=== PATIENT | female | born 1970 | race Caucasian/White ===

== ENCOUNTER 2025-04-02 10:22 | Emergency (ER) | payer OTHER, SELFPAY ==
[2025-04-02 10:24] VITALS: BP 156/86
--- NOTE | 2025-04-02 11:51 | ED.GENMED ---
History of Present Illness
General
Chief Complaint: Back Pain
Source: patient
Exam Limitations: none
Time Seen by Provider: 04/02/25 11:42
History of Present Illness
History of Present Illness:
54-year-old female presents with right flank pain that comes around to the front. Is made worse with motion and deep breathing. She denies shortness of breath. No recent travel or surgery. This was preceded by flulike symptoms including a
temperature as high as 102. She was seen in urgent care tested for COVID and flu which were negative but was found to have a UTI. She was given Rocephin and just finished an oral antibiotic 3 days ago however the pain in her back persist. She
denies any urinary symptoms. She has been vomiting. She has a history of kidney stones but this feels different. She denies a rash or numbness. No other complaints
Past History
Past History
ED Past Medical History: GERD, HTN and Other (Gastroparesis)
Social History
Tobacco: Non-smoker
Alcohol: None
Phy Exam
Physical Exam
Physical Exam:
General: Uncomfortable appearing female no acute respiratory distress
HEENT normal cephalic atraumatic
Heart: Regular rate and rhythm
Lungs: Clear no wheeze
Abdomen is soft but tender to the right costovertebral angle and right mid abdomen negative Goldberg sign no guarding nondistended skin is warm no rash
Musculoskeletal exam: Midline the spine is nontender
Course
Orders/Labs/Results
Orders:
Orders
04/02/25 11:50
CT Abd/pel Without Iv Or Oral Urgent
Comment:
Reason For Exam: right flank pain
0.9% Sodium Chloride 1000 ml [Nss] 1,000 ml IV BOLUS
Ketorolac [Toradol] 15 mg IV NOW STA
Ondansetron Injectable [Zofran] 4 mg IV NOW STA
04/02/25 11:55
Complete Blood Count/With Diff Urgent
Comprehensive Metabolic Panel Urgent
Lipase Urgent
04/02/25 12:51
Urinalysis Reflex To Culture Urgent
Date Specimen was Collected: 04/02/25
Time Specimen was Collected: 12:37
Urine Microscopic Reflex Cult Urgent
Urine Culture Urgent
JESUS Source: U
Specimen Description:
Date Specimen was Collected: 04/02/25
Time Specimen was Collected: 12:37
Abnormal Lab Results
04/02/25 04/02/25
11:55 12:51
ALT 41 H U/L
(0-35)
Ur Occult Blood Reflex 1+ A
(Negative)
Leukocyte Esterase Rfl 3+ A
(Negative)
Urine RBC 16-20 A /HPF
(0-2)
Urine WBC (Reflex) 50-60 A /HPF
(0-5)
Urine Bacteria (Reflex) Few A
(Negative)
Urine Albumin (Reflex) 1+ A
(Neg - Trace)
04/02/25 11:55
04/02/25 11:55
Vital Signs
Initial and Last Documented VS:
Initial Vital Signs
Temp Pulse Resp BP Pulse Ox
97.8 F 87 16 156/86 99
04/02/25 10:24 04/02/25 10:24 04/02/25 10:24 04/02/25 10:24 04/02/25 10:24
Last Documented Vital Signs
Temp Pulse Resp BP Pulse Ox
97.8 F 73 16 163/110 96
04/02/25 10:24 04/02/25 14:15 04/02/25 14:15 04/02/25 14:07 04/02/25 14:15
MDM/Problems Addressed
Differential Diagnosis Includes:
Right flank pain. This was preceded by fever with flulike symptoms however flu test was negative. She was found to have a UTI just finished a course of antibiotics. Consider renal colic versus pyelonephritis versus muscular strain. No risk
factors for PE vital signs are stable
Check labs and urine. Toradol fluids and Zofran ordered. CT pending
*Pulse Oximetry
SaO2: 99
Oxygen Mode of Delivery: Room air
Patient hypoxic: no
*Critical Care Note
Total Time (30-74mins, 75-104mins- exclusive of procedures): Not Applicable
Update Note
Update Note:
CT without acute findings. Urinalysis likely contaminated specimen given large amount of squamous cells. Patient does not have any urinary symptoms currently burning urgency frequency or hematuria. Patient reassessed. Some of her discomfort has
improved. She describes minimal discomfort when sitting still soon as she moves there is increased right flank pain. I suspect this is muscular in nature. Will prescribe anti-inflammatories and muscle relaxers. Urine culture pending. Return
precautions given.
ED Attending Note
-
Portions of this chart may have been created with voice recognition software.� Occasional wrong word or��sound alike� substitutions may have occurred due to the inherent limitations of voice recognition software.
Discharge Plan
Departure
Patient Disposition: Home (Routine Discharge)
Date of Disposition: 04/02/25
Time of Disposition: 14:41
Patient with high blood pressure during this ER visit?: No
Discharge Problem:
Acute flank pain
Instructions: Low Back Pain (DC)
Prescriptions:
New
prednisone 10 mg Tablet
See Rx Instructions .ROUTE .COMPLEX Qty: 30 0RF
Rx Instructions:
Take By Mouth:
40 mg daily x3 days, 30 mg daily x3 days,
20 mg daily x3 days, 10 mg daily x3 days.
diazepam [Valium] 5 mg tablet
5 mg PO BID PRN (Reason: muscle spasm) Qty: 10 0RF
No Action
lansoprazole [Prevacid] 30 MG capsule,delayed release(DR/EC)
30 mg PO HS
pjfpxxuzog-dhsrjgdsi-qrjlbclom [Tribenzor] 1 EACH tablet
1 ea PO HS
metronidazole 500 mg tablet
500 mg PO TID 10 Days Qty: 30 0RF
cefuroxime axetil 500 mg tablet
500 mg PO BID 10 Days Qty: 20 0RF
rabies vacc,human diploid (PF) 2.5 unit recon soln
2.5 unit IM ONCE Qty: 3 0RF
Rx Instructions:
Administer IM once on 02/20/2023, 02/24/2023, 03/03/2023
lisinopril 20 mg Tablet
20 mg PO HS
naproxen 250 mg Tablet
250 mg PO BID PRN (Reason: pain)
Referrals:
Aravind Tadeo MD [Active, Orthopedics]
UNKNOWN - PT DOES,NOT KNOW [Family Provider]
Activity Restrictions/Additional Instructions:
Use warm compresses to the back. Use anti-inflammatories and muscle relaxers as directed peer return here for fever increased vomiting or pain otherwise follow-up back pain specialist.
Interventions
Interventions:
*Risk Screen - Suicide Last Done: 04/02/25 10:24
*General Assessment Last Done: 04/02/25 12:06
*Neglect/Abuse Screening Last Done: 04/02/25 10:24
*ED- Fall Risk Assessment Last Done: 04/02/25 12:06
ED-Musculoskeletal Assessment Last Done: 04/02/25 12:06
Discharge Date and Time
Print Language: SLOVAK
[2025-04-02] MEDS: ZOFRAN 4 MG IV (12:00)
[2025-04-02] MEDS: NSS 1000 IV (12:00)
[2025-04-02] MEDS: TORADOL 15 MG IV (12:01)
[2025-04-02 12:09] LABS: Hematocrit 41.9 % (37.0-47.0); Hemoglobin 14.3 g/dL (12.0-16.0); Mean Corp Hgb Conc. 34.1 g/dL (33.0-37.0); Mean Corpuscular Volume 90.9 fL (81.0-99.0); Nucleated Red Blood Cells % 0 %; Platelet Count 273 10^3/uL (130-400); Red Cell Dist. Width 12.4 % (11.5-14.5)
[2025-04-02 12:24] LABS: ALT (SGPT) 41 U/L (0-35); AST (SGOT) 27 U/L (14-36); Albumin 4.4 g/dl (3.5-5.0); Alkaline Phosphatase 102 U/L (38-126); Blood Urea Nitrogen 11 mg/dl (7-17); Calcium 9.3 mg/dl (8.4-10.2); Carbon Dioxide 28 mmol/L (22-30); Chloride 107 mmol/L (98-107); Glucose 96 mg/dl (70-99); Lipase 64 U/L (23-300); Potassium 4.0 mmol/L (3.5-5.1); Sodium 142 mmol/L (135-145); Total Protein 7.3 g/dl (6.3-8.2); eGFR > 60.00
[2025-04-02 12:35] VITALS: BP 191/111
[2025-04-02 13:02] LABS: Urine Character Slightly Cloudy (Clear)
[2025-04-02 13:19] LABS: Urine Squamous Cell >30 /LPF (Few)
[2025-04-02 13:20] LABS: Urine Red Blood Cell 16-20 /HPF (0-2); Urine White Cell 50-60 /HPF (0-5)
[2025-04-02 14:07] VITALS: BP 163/110
== END 2025-04-02 15:05 | disposition home or self-care (01) ==
LOC: EMR 10:22
PROVIDERS: Physician Assistant; EMERGENCY PHYSICIAN Emergency Medicine
DX: R10.A1 Flank pain, right side (principal); I10 Essential (primary) hypertension; K31.84 Gastroparesis; K21.9 Gastro-esophageal reflux disease without esophagitis; Z87.442 Personal history of urinary calculi
CPT/HCPCS: 99284; 96374; 96375; 96361; 74176; 80053; 81003; 81015; 83690; 85025; 87086